=== PATIENT | male | born 1975 | race Caucasian/White ===

== ENCOUNTER 2021-09-04 05:00 | Observation (INO) | payer BC, SELFPAY ==
[2021-09-04] MEDS ORDERED: METHYLPREDNISOLONE 125 MG INJ ONE (05:38)
[2021-09-04] MEDS ORDERED: FAMOTIDINE 20 MG/2 ML VIAL IV ONE (05:39)
[2021-09-04] MEDS ORDERED: ASPIRIN 81 MG CHEWABLE TABLET ONE (05:39)
[2021-09-04] MEDS ORDERED: Levofloxacin500mg IV 500 MG/100 ML BAG IV ONE (05:39)
[2021-09-04] MEDS ORDERED: NA CHLORIDE 0.9% 1,000 ML ONE (05:39)
[2021-09-04 05:41] LABS: Basophils % 0.9 % (0-1.3); Hematocrit 42.3 % (39.6-49.0); Lymphocytes % 26.3 % (15.3-44.8); MPV 10.1 fL (7.6-11.3); RBC Red Blood Cell Count 3.94 M/uL (4.33-5.43)
[2021-09-04] MEDS ORDERED: IPRATROPIUM BROM 0.5MG/2.5ML ONE (05:46)
[2021-09-04] MEDS ORDERED: ALBUTEROL 2.5 MG/3 ML NEB SOL ONE (05:46)
[2021-09-04 06:01] LABS: ALT/SGPT 39 U/L (12-78); AST/SGOT 89 U/L (15-37); Albumin 3.5 g/dL (3.4-5.0); Alkaline Phosphatase 118 U/L (45-117); BUN Blood Urea Nitrogen 2 mg/dL (7-18); Bicarbonate 22 mmol/L (21-32); Bilirubin Direct 0.7 mg/dL (0-0.2); Bilirubin Total 1.6 mg/dL (0.2-1.0); Creatine Phosphokinase 123 U/L (39-308); Glucose Level 79 mg/dL (74-106); Magnesium 1.7 mg/dL (1.8-2.4); NT PRO-BNP 258 pg/mL (<125); Potassium 3.2 mmol/L (3.5-5.1); Protein, Total 7.5 g/dL (6.4-8.2); Sodium Level 124 mmol/L (136-145); Troponin (Emerg Dept Use Only) < 0.02 ng/mL (0.0-0.045)
[2021-09-04 06:03] LABS: CKMB Creatine Kinase MB < 1.0 ng/mL (1.0-3.6)
[2021-09-04 06:12] LABS: Protime INR 1.1
--- NOTE | 2021-09-04 06:37 | EDPHYS ---
Physician Documentation [facility] Name: Lake Lr Age: 46 yrs Sex: Male : 1975 Arrival Date: 09/04/2021 Time: 05:04 Bed 17 Private MD: ROWDY Physician Bhavik Zaragoza HPI: 09/04 05:24 This 46 yrs old Male presents to ER via EMS with complaints of cp and sob. bay 05:24 The patient has shortness of breath with light activity. Onset: The symptoms/episode bay began/occurred 4 day(s) ago. Duration: The symptoms are continuous, and are steadily getting worse. The patient's shortness of breath is aggravated by coughing, is alleviated by nothing. The patient or guardian reports chest pain that is located primarily in the anterior chest wall, bilaterally. Onset: 4 day(s) ago. The pain does not radiate. Associated signs and symptoms: The patient has no apparent associated signs or symptoms. Severity of symptoms: At their worst the symptoms were moderate in the emergency department the symptoms are unchanged. The patient or guardian reports cough, difficulty breathing, flu symptoms, arthralgias. Historical: - Allergies: 05:00 No Known Allergies; cc4 - Home Meds: 05:00 Xanax 0.5 mg oral tab for anxiety, sleep [Active]; cc4 - PMHx: 05:00 shortness of breath; nausea; diarrhea; muscle cramping; cc4 - PSHx: 05:00 left hip replacement; cc4 - Family history:: not pertinent. - Social history:: Smoking status: Patient reports the use of cigarette tobacco products, smokes two packs cigarettes per day. Patient uses alcohol, 12 pack per day. ROS: 05:24 Constitutional: Negative for fever, chills, and weight loss, Eyes: Negative for injury, bay pain, redness, and discharge, ENT: Negative for injury, pain, and discharge, Neck: Negative for injury, pain, and swelling, Abdomen/GI: Negative for abdominal pain, nausea, vomiting, diarrhea, and constipation, Back: Negative for injury and pain, : Negative for injury, bleeding, discharge, and swelling, MS/Extremity: Negative for injury and deformity, Skin: Negative for injury, rash, and discoloration, Neuro: Negative for headache, weakness, numbness, tingling, and seizure, Psych: Negative for depression, anxiety, suicide ideation, homicidal ideation, and hallucinations, Allergy/Immunology: Negative for hives, rash, and allergies, Endocrine: Negative for neck swelling, polydipsia, polyuria, polyphagia, and marked weight changes, Hematologic/Lymphatic: Negative for swollen nodes, abnormal bleeding, and unusual bruising. 05:24 Cardiovascular: Positive for chest pain, of the chest. 05:24 Respiratory: Positive for cough, shortness of breath, on exertion. Exam: 05:24 Constitutional: This is a well developed, well nourished patient who is awake, alert, bay and in no acute distress. Head/Face: Normocephalic, atraumatic. Eyes: Pupils equal round and reactive to light, extra-ocular motions intact. Lids and lashes normal. Conjunctiva and sclera are non-icteric and not injected. Cornea within normal limits. Periorbital areas with no swelling, redness, or edema. ENT: Nares patent. No nasal discharge, no septal abnormalities noted. Tympanic membranes are normal and external auditory canals are clear. Oropharynx with no redness, swelling, or masses, exudates, or evidence of obstruction, uvula midline. Mucous membranes moist. Neck: Trachea midline, no thyromegaly or masses palpated, and no cervical lymphadenopathy. Supple, full range of motion without nuchal rigidity, or vertebral point tenderness. No Meningismus. Chest/axilla: Normal chest wall appearance and motion. Nontender with no deformity. No lesions are appreciated. Cardiovascular: Regular rate and rhythm with a normal S1 and S2. No gallops, murmurs, or rubs. Normal PMI, no JVD. No pulse deficits. Abdomen/GI: Soft, non-tender, with normal bowel sounds. No distension or tympany. No guarding or rebound. No evidence of tenderness throughout. Back: No spinal tenderness. No costovertebral tenderness. Full range of motion. Male : Normal genitalia with no discharge or lesions. Skin: Warm, dry with normal turgor. Normal color with no rashes, no lesions, and no evidence of cellulitis. MS/ Extremity: Pulses equal, no cyanosis. Neurovascular intact. Full, normal range of motion. Neuro: Awake and alert, GCS 15, oriented to person, place, time, and situation. Cranial nerves II-XII grossly intact. Motor strength 5/5 in all extremities. Sensory grossly intact. Cerebellar exam normal. Normal gait. Psych: Awake, alert, with orientation to person, place and time. Behavior, mood, and affect are within normal limits. 05:24 Respiratory: the patient does not display signs of respiratory distress, Respirations: normal, Breath sounds: bronchial sounds, that are mild, are heard diffusely, decreased breath sounds, that are mild, are located in both bases, Respiratory rate: 20 05:24 Musculoskeletal/extremity: ROM: intact in all extremities, full active range of motion, full passive range of motion, Circulation is intact in all extremities. Sensation intact. Compartment Syndrome exam of affected extremity: is normal. DVT Exam: No signs of deep vein thrombosis. no pain, no swelling, no tenderness, negative Homans' sign noted on exam, no appreciated bluish discoloration, no erythema, no increased warmth. Vital Signs: 05:00 BP 143 / 91; Pulse 94; Resp 20; Temp 98.0(O); Pulse Ox 100% on R/A; Weight 63.5 kg; cc4 Height 5 ft. 11 in. (180.34 cm); 07:15 BP 129 / 91; Pulse 104; Resp 18; Temp 98.2(O); Pulse Ox 100% on R/A; sl2 08:00 BP 115 / 84; Pulse 102; Resp 16; Pulse Ox 98% on R/A; sl2 09:00 BP 108 / 84; Pulse 103; Resp 18; Temp 98.1; Pulse Ox 95% on R/A; sl2 10:00 BP 128 / 80; Pulse 99; Resp 18; Pulse Ox 99% on R/A; sl2 11:00 BP 130 / 82; Pulse 91; Resp 18; Temp 98.2; Pulse Ox 99% ; sl2 11:30 BP 133 / 85; Pulse 90; Resp 18; Temp 98.9; Pulse Ox 100% ; sl2 12:01 BP 133 / 95; Pulse 87; Resp 24; Pulse Ox 100% ; jt3 05:00 Body Mass Index 19.53 (63.50 kg, 180.34 cm) cc4 MDM: 05:05 Patient medically screened. bay 05:28 Differential diagnosis: CHF exacerbation, Chronic Obstructive Pulmonary Disease bay abnormal EKG, cholecystitis, Cholelithiasis esophagitis, gastritis, pancreatitis, pleurisy, pneumonia, pulmonary embolus, unstable angina, pneumonia, pulmonary edema, Unstable Angina. Antibiotic administration: Levaquin given. HEART Score: ECG: Normal (0), Age: < or = 45 years (0), Risk Factors: 1 or 2 risk factors (1), [Active Smoker] Troponin:. The patient was given aspirin in the Emergency Department. The patient's Wells Deep Vein Thrombosis Score was calculated as follows: Total Score: 0. This patient was found to be at low risk for a deep vein thrombosis by using the Well's assessment criteria Total Score: 0-2 Pts- Low Risk. Differential Diagnosis: Bronchitis Upper Respiratory Infection Sinusitis Pharyngitis Asthma Exacerbation Viral Syndrome Pneumonia. The patient's pulmonary embolism risk score was calculated as follows: Total Score: 0-2 points. This patient was found to be at low risk for a pulmonary embolism by using the Well's assessment criteria Total Score: 0-2 points. This patient was found to be at low risk for a pulmonary embolism by using the Well's assessment criteria. DANIELLE Risk Score: TOTAL SCORE = 0. Immunization status:. Data reviewed: vital signs, nurses notes, EMS record, lab test result(s), EKG, radiologic studies, CT scan, plain films. Data interpreted: sanitary chemist: rate is 94 beats/min, rhythm is regular, Pulse oximetry: on room air is 100 %. Test interpretation: by ED physician or midlevel provider: ECG, plain radiologic studies. Counseling: I had a detailed discussion with the patient and/or guardian regarding: the historical points, exam findings, and any diagnostic results supporting the discharge/admit diagnosis, lab results, radiology results, the need for further work-up and treatment in the hospital. 09/04 05:22 Order name: Basic Metabolic Panel [facility] 09/04 05:22 Order name: CBC with Diff [facility] 09/04 05:22 Order name: LFT's [facility] 09/04 05:22 Order name: Magnesium [facility] 09/04 05:22 Order name: NT PRO-BNP; Complete Time: 06: [facility] 09/04 05:22 Order name: PT-INR; Complete Time: 06: [facility] 09/04 05:22 Order name: Troponin (emerg Dept Use Only); Complete Time: : [facility] 09/04 05:22 Order name: Blood Culture Adult (2) [facility] 09/04 05:22 Order name: SARS-COV-2 RT PCR (Document "Date of Onset" if Symptomatic) [facility] 09/04 05:23 Order name: Basic Metabolic Panel; Complete Time: 06:26 [facility] 09/04 05:23 Order name: CBC with Automated Diff [facility] 09/04 05:23 Order name: Liver (Hepatic) Function; Complete Time: 06:26 [facility] 09/04 05:23 Order name: Magnesium; Complete Time: 06:26 [facility] 09/04 05:41 Order name: Creatine Phosphokinase; Complete Time: 06:26 [facility] 09/04 05:41 Order name: CKMB Creatine Kinase MB; Complete Time: 06:26 [facility] 09/04 06:30 Order name: Urine Osmolality [facility] 09/04 06:30 Order name: Urine Sodium Random [facility] 09/04 06:30 Order name: Osmolality, Serum [facility] 09/04 06:30 Order name: Osmolality, Urine [facility] 09/04 06:30 Order name: UR SODIUM [facility] 09/04 06:31 Order name: Osmolality, Serum [facility] 09/04 06:57 Order name: Urine Dipstick-Ancillary; Complete Time: 07:06 [facility] 09/04 07:24 Order name: CBC Smear Scan [facility] 09/04 08:14 Order name: Lipid Profile [facility] 09/04 08:14 Order name: Lipid Profile [facility] 09/04 08:14 Order name: Troponin I [facility] 09/04 08:14 Order name: Troponin I [facility] 09/04 08:14 Order name: Troponin I [facility] 09/04 05:22 Order name: XRAY Chest (1 view) [facility] 09/04 05:22 Order name: EKG; Complete Time: 05:23 [facility] 09/04 05:22 Order name: Cardiac monitoring; Complete Time: 05:24 [facility] 09/04 05:22 Order name: EKG - Nurse/Tech; Complete Time: 05:23 [facility] 09/04 05:22 Order name: IV Saline Lock; Complete Time: 05:24 [facility] 09/04 05:22 Order name: Labs collected and sent; Complete Time: 05:24 [facility] 09/04 05:22 Order name: O2 Sat Monitoring; Complete Time: 05:23 [facility] 09/04 05:22 Order name: US Extremity Venous W Compression Carlos [facility] 09/04 05:22 Order name: CT Chest For PE Angio bay 09/04 08:14 Order name: Heart Healthy EDMS 09/04 08:14 Order name: Echo with Doppler EDMS 09/04 08:14 Order name: Echo with Doppler EDMS Administered Medications: 05:45 Drug: Albuterol - atroVENT (ipratropium) (3:1) (2.5 mg - 0.5 mg) 3 ml Route: Nebulizer; cc4 11:41 Follow up: Response: No adverse reaction sl2 05:48 Drug: Pepcid (famotidine) 20 mg Route: IVP; Site: right antecubital; cc4 11:42 Follow up: Response: No adverse reaction sl2 05:50 Drug: SOLU-Medrol (methylPrednisoLONE) 125 mg Route: IVP; Site: right antecubital; cc4 11:42 Follow up: Response: No adverse reaction sl2 06:27 CANCELLED (Duplicate Order): NS 0.9% 1000 ml IV at 125 ml/hr continuous [facility] 06:30 Drug: Aspirin Chewable Tablet 324 mg Route: PO; cc4 11:41 Follow up: Response: No adverse reaction sl2 06:45 Drug: levofloxacin 500 mg Volume: 100 ml; Route: IVPB; Infused Over: 60 mins; Site: cc4 right antecubital; 06:57 Drug: Potassium Effervescent Tablet 25 mEq Route: PO; cc4 11:41 Follow up: Response: No adverse reaction sl2 08:25 Drug: NS 0.9% with KCl 20 mEq/L 1000 ml Route: IV; Rate: 100 ml/hr; Site: right sl2 antecubital; 10:06 Follow up: Response: No adverse reaction sl2 10:06 Follow up: Response: No adverse reaction sl2 08:30 Drug: Magnesium Sulfate 2 grams Route: IVPB; Infused Over: 2 hrs; Site: right sl2 antecubital; 11:26 Follow up: Response: No adverse reaction; IV Status: Completed infusion; IV Intake: sl2 100ml 09:00 Drug: NS 0.9% 1000 ml Route: IV; Rate: 1 bolus; Site: right antecubital; sl2 11:57 Follow up: Response: No adverse reaction; IV Status: Completed infusion; IV Intake: sl2 1000ml Disposition Summary: 09/04/21 06:36 Hospitalization Ordered Hospitalization Status: Inpatient Admission bay Provider: Florence Turner cha Location: Telemetry/MedSurg (Inpatient) bay Condition: Fair bay Problem: new bay Symptoms: have improved bay Bed/Room Type: Standard bay Room Assignment: 215(09/04/21 12:06) ja1 Diagnosis - Tobacco abuse counseling bay - Tobacco use bay - Hypo-osmolality and hyponatremia bay - Hypokalemia bay - Hypomagnesemia bay - COPD/ Chronic obstructive pulmonary disease with (acute) exacerbation bay Forms: - Medication Reconciliation Form bay - SBAR form bay Signatures: Dispatcher [employer] EDMS Bhavik Zaragoza MD MD cha Smirch, Shelby RN RN ss Peter Ta RN RN ja1 Carmen Bae RN RN cc4 Carolina Lundberg RN RN sl2 Corrections: (The following items were deleted from the chart) 05:41 05:27 CKMB+C.LAB.BRZ ordered. EDMS EDMS 05:41 05:27 CREATINE PHOSPHOKINASE+C.LAB.BRZ ordered. EDMS EDMS 06:27 05:45 NS 0.9% 1000 ml IV at 125 ml/hr continuous ordered. bay bay 11:30 06:36 bay ss 12:06 11:30 225 ss ja1
--- NOTE | 2021-09-04 06:37 | ER ---
Nurse's Notes [facility] Name: Lake Lr Age: 46 yrs Sex: Male : 1975 Arrival Date: 09/04/2021 Time: 05:04 Bed 17 Private MD: Diagnosis: Tobacco abuse counseling;Tobacco use;Hypo-osmolality and hyponatremia;Hypokalemia;Hypomagnesemia;COPD/ Chronic obstructive pulmonary disease with (acute) exacerbation Presentation: 09/04 05:00 Chief complaint: EMS states: c/o SOB this am; pt reports having diarrhea, nausea, cc4 vomiting with intermittent muscle cramps x 5 days with inability to eat or sleep; reports taking xanax \\T\\ 0100 this morning; smells strongly of cigarette smoke. Initial Sepsis Screen: Does the patient meet any 2 criteria? No. Patient's initial sepsis screen is negative. Risk Assessment: Do you want to hurt yourself or someone else? Patient reports no desire to harm self or others. 05:00 Method Of Arrival: EMS: [facility] cc4 05:00 Acuity: VELMA 4 cc4 07:14 Coronavirus screen: Vaccine status: Patient reports receiving the 2nd dose of the covid cc4 vaccine. Date May 20, 2021 At this time, the client does not indicate any symptoms associated with coronavirus-19. Ebola Screen: No symptoms or risks identified at this time. Initial Sepsis Screen: Does the patient have a suspected source of infection? No. Patient's initial sepsis screen is negative. Note nausea/vomiting/diarrhea. Onset of symptoms was August 31, 2021. Triage Assessment: 05:00 General: Appears in no apparent distress. Behavior is calm, cooperative. Pain: Denies cc4 pain. EENT: No deficits noted. Eyes clear. Nares are clear Oral mucosa is dry. Neuro: No deficits noted. Level of Consciousness is awake, alert, obeys commands, Oriented to person, place, time, situation. Cardiovascular: No deficits noted. Rhythm is sinus rhythm. Respiratory: No deficits noted. Airway is patent Respiratory effort is even, unlabored, Respiratory pattern is regular, symmetrical, Breath sounds with rhonchi bilaterally. GI: Reports diarrhea, nausea, vomiting, x 4-5 days. GI: Bowel sounds present X 4 quads. : No signs and/or symptoms were reported regarding the genitourinary system. Derm: No deficits noted. Skin is intact. Musculoskeletal: Capillary refill < 3 seconds, Range of motion: limited in bilateral lower extremities. Reports weakness in in ambulation. Historical: - Allergies: 05:00 No Known Allergies; cc4 - Home Meds: 05:00 Xanax 0.5 mg oral tab for anxiety, sleep [Active]; cc4 - PMHx: 05:00 shortness of breath; nausea; diarrhea; muscle cramping; cc4 - PSHx: 05:00 left hip replacement; cc4 - Family history:: not pertinent. - Social history:: Smoking status: Patient reports the use of cigarette tobacco products, smokes two packs cigarettes per day. Patient uses alcohol, 12 pack per day. Screenin:00 Abuse screen: Denies threats or abuse. Nutritional screening: reports not eating x 5 cc4 days. Tuberculosis screening: No symptoms or risk factors identified. Fall Risk Gait- Weak (10 pts.). Assessment: 07:21 Reassessment: See triage assessment. [facility] 10:06 Reassessment: clinical laboratory technologist at bedside - echocardiogram in progress. [facility] 11:52 Reassessment: Floor called to give nursing report for inpatient admission - Assigned RN sl2 is unavailable at this time - giving patient care and will call back to obtain report shortly. 12:22 Reassessment: Nursing report given to BASIM Marti for inpatient admission to room 215. [facility] Vital Signs: 05:00 BP 143 / 91; Pulse 94; Resp 20; Temp 98.0(O); Pulse Ox 100% on R/A; Weight 63.5 kg; cc4 Height 5 ft. 11 in. (180.34 cm); 07:15 BP 129 / 91; Pulse 104; Resp 18; Temp 98.2(O); Pulse Ox 100% on R/A; sl2 08:00 BP 115 / 84; Pulse 102; Resp 16; Pulse Ox 98% on R/A; sl2 09:00 BP 108 / 84; Pulse 103; Resp 18; Temp 98.1; Pulse Ox 95% on R/A; sl2 10:00 BP 128 / 80; Pulse 99; Resp 18; Pulse Ox 99% on R/A; sl2 11:00 BP 130 / 82; Pulse 91; Resp 18; Temp 98.2; Pulse Ox 99% ; sl2 11:30 BP 133 / 85; Pulse 90; Resp 18; Temp 98.9; Pulse Ox 100% ; sl2 12:01 BP 133 / 95; Pulse 87; Resp 24; Pulse Ox 100% ; jt3 05:00 Body Mass Index 19.53 (63.50 kg, 180.34 cm) cc4 ED Course: 05:00 Arm band placed on. cc4 05:00 Patient has correct armband on for positive identification. Bed in low position. Call cc4 light in reach. Side rails up X2. process mold technician on. Pulse ox on. NIBP on. 05:04 Patient arrived in ED. cs9 05:05 Bhavik Zaragoza MD is Attending Physician. bay 05:06 Carmen Bae, BASIM is Primary Nurse. cc4 05:11 Triage completed. cc4 05:24 XRAY Chest (1 view) Sent. cc4 05:24 Troponin (emerg Dept Use Only) Sent. cc4 05:24 PT-INR Sent. cc4 05:24 NT PRO-BNP Sent. cc4 05:24 Magnesium Sent. cc4 05:24 LFT's Sent. cc4 05:24 CBC with Diff Sent. cc4 05:25 Liver (Hepatic) Function Sent. cc4 05:25 Magnesium Sent. cc4 05:25 Basic Metabolic Panel Sent. cc4 05:25 CBC with Automated Diff Sent. cc4 05:41 XRAY Chest (1 view) In Process Unspecified. EDMS 05:58 Blood Culture Adult (2) Sent. cc4 05:59 SARS-COV-2 RT PCR (Document "Date of Onset" if Symptomatic) Sent. cc4 06:00 CT Chest For PE Angio Sent. cc4 06:00 US Extremity Venous W Compression Carlos Sent. cc4 06:00 Basic Metabolic Panel Sent. cc4 06:22 US Extremity Venous W Compression Carlos In Process Unspecified. EDMS 06:33 Florence Turner MD is Hospitalizing Provider. bay 06:46 CT Chest For PE Angio In Process Unspecified. EDMS 06:54 Osmolality, Urine Sent. cc4 06:54 UR SODIUM Sent. cc4 06:55 Urine Sodium Random Sent. cc4 06:55 Osmolality, Serum Sent. cc4 06:55 Urine Osmolality Sent. cc4 07:02 Urine collected: clean catch specimen, matt colored. gd 11:43 No provider procedures requiring assistance completed. Flushed right antecubital. 2 12:11 Troponin I Sent. 5 12:11 Troponin I Sent. 5 12:11 Troponin I Sent. 5 12:30 Patient admitted, IV remains in place. sl2 Administered Medications: 05:45 Drug: Albuterol - atroVENT (ipratropium) (3:1) (2.5 mg - 0.5 mg) 3 ml Route: Nebulizer; cc4 11:41 Follow up: Response: No adverse reaction 2 05:48 Drug: Pepcid (famotidine) 20 mg Route: IVP; Site: right antecubital; cc4 11:42 Follow up: Response: No adverse reaction 2 05:50 Drug: SOLU-Medrol (methylPrednisoLONE) 125 mg Route: IVP; Site: right antecubital; cc4 11:42 Follow up: Response: No adverse reaction 2 06:27 CANCELLED (Duplicate Order): NS 0.9% 1000 ml IV at 125 ml/hr continuous bay 06:30 Drug: Aspirin Chewable Tablet 324 mg Route: PO; cc4 11:41 Follow up: Response: No adverse reaction 2 06:45 Drug: levofloxacin 500 mg Volume: 100 ml; Route: IVPB; Infused Over: 60 mins; Site: cc4 right antecubital; 06:57 Drug: Potassium Effervescent Tablet 25 mEq Route: PO; 4 11:41 Follow up: Response: No adverse reaction 2 08:25 Drug: NS 0.9% with KCl 20 mEq/L 1000 ml Route: IV; Rate: 100 ml/hr; Site: right sl2 antecubital; 10:06 Follow up: Response: No adverse reaction 2 10:06 Follow up: Response: No adverse reaction 2 08:30 Drug: Magnesium Sulfate 2 grams Route: IVPB; Infused Over: 2 hrs; Site: right sl2 antecubital; 11:26 Follow up: Response: No adverse reaction; IV Status: Completed infusion; IV Intake: sl2 100ml 09:00 Drug: NS 0.9% 1000 ml Route: IV; Rate: 1 bolus; Site: right antecubital; 2 11:57 Follow up: Response: No adverse reaction; IV Status: Completed infusion; IV Intake: sl2 1000ml Intake: 11:26 IV: 100ml; Total: 100ml. sl2 11:57 IV: 1000ml; Total: 1100ml. sl2 Outcome: 06:36 Decision to Hospitalize by Provider. bay 12:21 Admitted to Med/surg accompanied by tech. sl2 12:29 Condition: stable sl2 12:29 Discharge instructions given to patient, Instructed on the need for admit, Demonstrated understanding of instructions. 12:30 Patient left the ED. sl2 Signatures: Dispatcher [employer] EDBhavik Vizcaino MD MD cha Martinez, [facility] Carmen Bae, RN RN cc4 Dominga Quiros Chaz Reid Sophia RN RN sl2 Mele King RN RN jt3 Corrections: (The following items were deleted from the chart) 06:53 05:52 levofloxacin 500 mg 100 ml IVPB in right antecubital over 60 mins 100 ml cc4 cc4
[2021-09-04] MEDS ORDERED: POTASSIUM 25 MEQ EFFERV TAB ONE (06:56)
[2021-09-04 06:57] LABS: Urine Blood Negative (Negative); Urine Glucose Negative (Negative); Urine Protein Negative (Negative)
--- NOTE | 2021-09-04 07:23 | RAD REPORT ---
EXAM DESCRIPTION: CT - Chest For Pe Angio - 09/04/2021 6:46 am CLINICAL HISTORY: Chest pain COMPARISON: None. TECHNIQUE: Dynamically enhanced axial 3 mm thick images of the chest were obtained during administra tion of <100> mL Isovue 370 IV contrast. Coronal and oblique reconstruction images were generated and reviewed. Exam utilizes a protocol for optimal evaluation of pulmonary arterial tree. Maximum intensity projections 3D imaging was utilized All CT scans are performed using dose optimization technique as appropriate and may include automated exposure control or mA/KV adjustment according to patient size. FINDINGS: A pulmonary embolus is not seen. A thoracic aortic aneurysm is not noted. A pleural effusion is not seen. A pericardial effusion is not seen. A lung consolidation is not present. Mild COPD. Fatty liver Hepatomegaly IMPRESSION: Negative for a pulmonary embolism.
[2021-09-04 07:24] LABS: Blood Morphology Comment NOTED (NOT SEEN); Macrocytosis 1+; Platelet Estimate DECR; White Blood Cell Scan OK (OK)
--- NOTE | 2021-09-04 07:24 | RAD REPORT ---
EXAM DESCRIPTION: Li Single View09/04/2021 5:41 am CLINICAL HISTORY: Chest pain COMPARISON: 2014 FINDINGS: The lungs are mildly hyperaerated. The lungs appear clear of acute infiltrate. The heart i s normal size IMPRESSION: Mild COPD without visualization of an acute abnormality
--- NOTE | 2021-09-04 07:24 | RAD REPORT ---
EXAM DESCRIPTION: USExtrem Venous W Compress Bil09/04/2021 6:22 am CLINICAL HISTORY: Leg pain COMPARISON: none FINDINGS: The common femoral, superficial femoral, popliteal and posterior tibial veins bilaterally are compressible and demonstrate augmentation. Doppler demonstrates good flow. IMPRESSION: No evidence of deep venous thrombosis involving either lower extremity.
[2021-09-04] MEDS ORDERED: MORPHINE 4 MG/ML SYR IV PRN (08:09)
[2021-09-04] MEDS ORDERED: ACETAMINOPHEN 500 MG TAB PO PRN (08:09)
[2021-09-04] MEDS ORDERED: ENOXAPARIN 40 MG/0.4 ML SQ SCH (09:00)
[2021-09-04] MEDS ORDERED: ASPIRIN EC 81 MG TAB PO SCH (09:00)
[2021-09-04] MEDS ORDERED: NS KCL 20MEQ 1,000 ML IV ONE (09:47)
[2021-09-04] MEDS ORDERED: Magnesium Sulfate 2gm IVPB 2 G/50 ML BAG IV ONE (09:48)
[2021-09-04 13:33] VITALS: BMI 19.5
[2021-09-04] MEDS: IPRATROPIUM BROM 0.5MG/2.5ML NEB SCH ×2 (13:45→20:20)
[2021-09-04] MEDS: ALBUTEROL 2.5 MG/3 ML NEB SOL NEB SCH ×2 (13:45→20:20)
[2021-09-04] MEDS: METHYLPREDNISOLONE 125 MG INJ IV SCH ×2 (13:54→17:22)
[2021-09-04] MEDS: METOPROLOL TAR 25 MG TAB PO SCH ×2 (13:54→21:03)
[2021-09-04] MEDS ORDERED: INFLUENZA VACCINE (for 6+ mo) 0.5 ML DOSE IMVAC ONE (15:00)
--- NOTE | 2021-09-04 16:51 | EKG ---
Test Date: 2021-09-04 Test Time: 05:03:19 Vp & General Counsel: [place] MEASUREMENT RESULTS: Intervals: Rate: 88 MT: 134 QRSD: 74 QT: 386 QTc: 467 [place]: P: 12 MT: 134 QRS: 58 T: 59 INTERPRETIVE STATEMENTS: Normal sinus rhythm Normal ECG Compared to ECG 09/08/2015 21:14:08 No significant changes Electronically Signed On 09-04-21 16:51:02 MALT ROASTER by Giovanni Sears
[2021-09-05] MEDS: METHYLPREDNISOLONE 125 MG INJ IV SCH (00:19)
[2021-09-05 00:32] VITALS: BP 113/68; TEMP 99.1
[2021-09-05 01:08] VITALS: O2SAT 98
[2021-09-05] MEDS: IPRATROPIUM BROM 0.5MG/2.5ML NEB SCH (02:00)
[2021-09-05] MEDS: ALBUTEROL 2.5 MG/3 ML NEB SOL NEB SCH (02:00)
--- NOTE | 2021-09-05 07:33 | ECHO ---
HEIGHT: 5 ft 11 in WEIGHT: 139 lb 15.897 oz DATE OF STUDY: 09/04/[address]: Florence Turner MD 2-DIMENSIONAL: YES M.MODE: YES DOPPLER: YES COLOR FLOW: YES TDS: YES PORTABLE: NO DEFINITY: NO BUBBLE STUDY: NO DIAGNOSIS: DYSPNEA, CHEST PAIN CARDIAC HISTORY: CATHERIZATION: NO SURGERY: NO PROSTHETIC VALVE: NO PACEMAKER: NO MEASUREMENTS (cm) DIASTOLIC (NORMALS) SYSTOLIC (NORMALS) IVSd 0.8 (0.6-1.2) LA Diam (1.9-4.0) LVEF 62% LVIDd 3.7 (3.5-5.7) LVIDs 2.5 (2.0-3.5) %FS 33% LVPWd 0.9 (0.6-1.2) Ao Diam 2.9 (2.0-3.7) 2 DIMENSIONAL ASSESSMENT: RIGHT ATRIUM: NORMAL LEFT ATRIUM: NORMAL RIGHT VENTRICLE: NORMAL LEFT VENTRICLE: NORMAL TRICUSPID VALVE: NORMAL MITRAL VALVE: NORMAL PULMONIC VALVE: NORMAL AORTIC VALVE: NORMAL PERICARDIAL EFFUSION: NONE AORTIC ROOT: NORMAL LEFT VENTRICULAR WALL MOTION: NORMAL DOPPLER/COLOR FLOW: NORMAL COMMENTS: NORMAL 2D ECHOCARDIOGRAM WITH DOPPLER. NO WALL MOTION ABNORMALITY. NO EFFUSION. TECHNOLOGIST: Rai PORTER
--- NOTE | 2021-09-09 19:39 | P.HP ---
Certification for Inpatient Patient admitted to: Observation With expected LOS: <2 Midnights Patient will require the following post-hospital care: None Practitioner: I am a practitioner with admitting privileges, knowledge of patient current condition, hospital course, and medical plan of care. Services: Services provided to patient in accordance with Admission requirements found in Title 42 Section 412.3 of the Code of Federal Regulations Patient History Date of Service: 09/04/21 Reason for admission: Chest pain rule out acute coronary syndrome; COPD exacerbation History of Present Illness: Patient is a 46-year-old gentleman who came to the hospital with chest discomfort. Pain was mainly in the sternal region. Patient is also short of breath and found have acute COPD exacerbation. Patient is admitted for further evaluation. Allergies Codeine Allergy (Uncoded 09/08/15 23:22) Unknown Home Medications: Alprazolam [Xanax] 1 mg PO 09/04/21 - Past Medical/Surgical History Diabetic: No Past Medical History: Patient denies medical history -: Left hip replacement - Family History Father Family History: Reviewed- Non-Contributory - Social History Smoking Status: Current every day smoker Alcohol use: Yes Place of Residence: Home Review of Systems 10-point ROS is otherwise unremarkable Physical Examination - Vital Signs Temperature: 99.1 F Blood Pressure: 113/68 Pulse: 98 Respirations: 18 Pulse Ox (%): 98 - Physical Exam General: Alert, In no apparent distress, Oriented x3 HEENT: Atraumatic, PERRLA, Mucous membr. moist/pink, EOMI, Sclerae nonicteric Neck: Supple, 2+ carotid pulse no bruit, No LAD, Without JVD or thyroid abnormality Respiratory: Clear to auscultation bilaterally, Normal air movement Cardiovascular: Regular rate/rhythm, Normal S1 S2 Gastrointestinal: Normal bowel sounds, No tenderness Musculoskeletal: No tenderness Integumentary: No rashes Neurological: Normal gait, Normal speech, Normal strength at 5/5 x4 extr, Normal tone, Normal affect Lymphatics: No axilla or inguinal lymphadenopathy - Studies Microbiology Data (last 24 hrs): 09/04/21 05:45 Blood - Blood Aerobic Blood Culture - Final No growth in 5 days. 09/04/21 05:45 Blood - Blood Anaerobic Blood Culture - Final No growth in 5 days. 09/04/21 05:30 Blood - Blood Aerobic Blood Culture - Final No growth in 5 days. 09/04/21 05:30 Blood - Blood Anaerobic Blood Culture - Final No growth in 5 days. Assessment & Plan - Problems (Diagnosis) (1) Chest pain, rule out acute myocardial infarction Status: Acute (2) Shortness of breath Status: Acute - Plan 1. Serial troponins and EKG 2. Cardiology consultation 3. Echocardiogram and stress test if cardiology is agreeable 4. Anti-platelet therapy, anti coagulation, beta-giovani, statin, and O2 as needed 5. IV morphine for pain 6. Nitro p.r.n. Discharge Plan: Home Plan to discharge in: Greater than 2 days - Advance Directives Does patient have a Living Will: No Does patient have a Durable POA for Healthcare: No - Code Status/Comfort Care Code Status Assessed: Yes Code Status: Full Code Critical Care: No Time Spent Managing PTS Care (In Minutes): 45
--- NOTE | 2021-09-09 19:40 | P.DS ---
Discharge Date: 09/05/21 Disposition: AMA-LEFT AGAINST MEDICAL ADVIC Reason for Admission: Chest pain rule out acute coronary syndrome; COPD exacerbation - Problems (1) Chest pain, rule out acute myocardial infarction Status: Acute (2) Shortness of breath Status: Acute Brief History of Present Illness: Patient is a 46-year-old gentleman who came to the hospital with chest discomfort. Pain was mainly in the sternal region. Patient is also short of breath and found have acute COPD exacerbation. Patient is admitted for further evaluation. Hospital Course: Patient left against medical advice Vital Signs/Physical Exam: Temp Pulse Resp BP Pulse Ox 99.1 F 98 H 18 113/68 98 09/09/21 19:39 09/09/21 19:39 09/09/21 19:39 09/09/21 19:39 09/09/21 19:39 General: Alert, In no apparent distress, Oriented x3 Laboratory Data at Discharge: WBC Cancelled 09/05/21 05:00 Hgb Cancelled 09/05/21 05:00 Hct Cancelled 09/05/21 05:00 Plt Count Cancelled 09/05/21 05:00 PT 12.7 SECONDS (9.5-12.5) H 09/04/21 05:05 INR 1.10 09/04/21 05:05 Sodium 124 mmol/L (136-145) L 09/04/21 05:05 Potassium 3.2 mmol/L (3.5-5.1) L 09/04/21 05:05 BUN 2 mg/dL (7-18) L 09/04/21 05:05 Creatinine 0.67 mg/dL (0.55-1.3) 09/04/21 05:05 Glucose 79 mg/dL (74-106) 09/04/21 05:05 Magnesium 1.7 mg/dL (1.8-2.4) L 09/04/21 05:05 Total Bilirubin 1.6 mg/dL (0.2-1.0) H 09/04/21 05:05 AST 89 U/L (15-37) H 09/04/21 05:05 ALT 39 U/L (12-78) 09/04/21 05:05 Alkaline Phosphatase 118 U/L (45-117) H 09/04/21 05:05 Troponin I < 0.02 ng/mL (0.0-0.045) 09/04/21 16:40 Triglycerides 71 mg/dL (<150) 09/04/21 05:05 Cholesterol 145 mg/dL (<200) 09/04/21 05:05 HDL Cholesterol 98 mg/dL (40-60) H 09/04/21 05:05 Cholesterol/HDL Ratio 1.48 09/04/21 05:05 Home Medications: Alprazolam [Xanax] 1 mg PO 09/04/21 Physician Discharge Instructions: Patient left against medical advice Followup: NONE,NONE [Primary Care Provider] - Time spent managing pt's care (in minutes): 35
== END 2021-09-05 04:15 | disposition left against medical advice (07) ==
LOC: ER 05:00 → ERHOLD 08:09 → 2ND 12:21
PROVIDERS: ADMIT Hospitalist; ATTEND Hospitalist
DX: R07.9 Chest pain, unspecified (principal); J44.1 Chronic obstructive pulmonary disease with (acute) exacerbation; Z96.642 Presence of left artificial hip joint; Z53.29 Procedure and treatment not carried out because of patient's decision for other reasons; Z20.822 Contact with and (suspected) exposure to COVID-19
CPT/HCPCS: 36415; 71045; 71275; 80048; 80061; 80076; 81003; 82550; 82553; 83735; 83880; 83930; 83935; 84300; 84484; 85025; 85610; 87040; 93005; 93306; 93970; 94640; 96361; 96365; 96366; 96375; 99285; G0378; J2930; J3475; J3480; J7030; Q9967; U0003

== ENCOUNTER → 2021-09-05 | Emergency (ER) | payer SELFPAY | LOC: ER 05:23 | DX: Z02.9 Encounter for administrative examinations, unspecified (principal) ==